=== PATIENT | female | born 1990 | race Caucasian/White ===

== ENCOUNTER 2023-03-12 05:23 | Inpatient (IN) | payer BC ==
[2023-03-12 06:57] VITALS: BMI 27.5
[2023-03-12] MEDS ORDERED: Ondansetron PF 4 MG/2 ML Vial IVP PRN (07:01)
[2023-03-12] MEDS ORDERED: Misoprostol 100 MCG TAB VAG SCH (07:01)
[2023-03-12] MEDS ORDERED: Misoprostol 200 MCG TAB PR PRN (07:01)
[2023-03-12] MEDS ORDERED: Promethazine HCl 25 MG/ML VIAL IM PRN (07:01)
[2023-03-12] MEDS ORDERED: Oxytocin 30 units/NS 500 ML 500 ML IV SCH ×2 (07:01)
[2023-03-12] MEDS ORDERED: Zolpidem Tartrate 5 MG TAB PO PRN (07:01)
[2023-03-12] MEDS ORDERED: Lidocaine 1% (PF) 30 ML VIAL SC PRN (07:01)
[2023-03-12] MEDS ORDERED: Methylergonovine 0.2 MG/ML VIAL IM PRN (07:01)
[2023-03-12] MEDS ORDERED: HYDROcodone/Acetaminophen 5/325 mg Tablet PO PRN ×2 (07:01)
[2023-03-12] MEDS ORDERED: Acetaminophen 500 MG TAB PO PRN (07:01)
[2023-03-12] MEDS ORDERED: hydrALAZINE 20 MG/ML VIAL SLOW IVP PRN ×2 (07:01→19:15)
[2023-03-12] MEDS ORDERED: Tranexamic Acid 1,000 MG/10 ML VIAL IVP PRN (07:01)
[2023-03-12] MEDS ORDERED: fentaNYL 50 mcg/mL 1 mL Vial SLOW IVP PRN (07:01)
[2023-03-12] MEDS ORDERED: Diphenoxylate HCl/Atropine Tablet PO PRN ×2 (07:01)
[2023-03-12] MEDS ORDERED: Carboprost 250 MCG/ML AMP IM PRN (07:01)
[2023-03-12] MEDS ORDERED: Ibuprofen 800 MG TAB PO PRN (07:01)
[2023-03-12] MEDS ORDERED: Lactated Ringer's 1,000 ML IV SCH (07:01)
[2023-03-12 07:21] LABS: Hematocrit 41.3 % (34.9-44.5); Hemoglobin 13.9 g/dL (12.0-15.5); Mean Corpuscular HGB CONC 33.7 g/dL (32.0-36.0); Mean Corpuscular Hemoglobin 29.9 pg (27.0-33.0); Mean Corpuscular Volume 88.8 fl (81.6-98.3); Mean Platelet Volume 11.1 fl (7.4-10.4); Platelet Count 179 10x3/uL (150-450); RBC Distribution Width 14.3 % (11.5-14.5); Red Blood Cell (RBC) Count 4.65 10x6/uL (3.90-5.03); White Blood Cell (WBC) Count 7.7 10x3/uL (3.5-10.5)
[2023-03-12 07:26] LABS: Glucose 130 mg/dL (70-105)
[2023-03-12 07:52] LABS: Hep B Surf Ag - L&D Non-Reactive S/CO (NonReactive)
[2023-03-12 07:53] LABS: Syphilis Antibody Nonreactive (Nonreactive); Syphilis Antibody Index 0.07 S/CO (<1.00 Non-Reactive)
[2023-03-12] MEDS ORDERED: fentaNYL/Ropivacaine Epidural 100 ML ONE (10:34)
[2023-03-12] MEDS ORDERED: Boostrix 0.5 ML (Tdap) VIAL (>/=7 yrs of age) IM ONE (19:15)
[2023-03-12] MEDS ORDERED: Benzocaine-Menthol 82.5 ML CAN TOP PRN (19:15)
[2023-03-12] MEDS ORDERED: diphenhydrAMINE 25 MG CAP PO PRN (19:15)
[2023-03-12] MEDS ORDERED: Milk Of Magnesia 30 ML UDCUP PO PRN (19:15)
[2023-03-12] MEDS ORDERED: Lanolin Ointment 7 GM TUBE TOP PRN (19:15)
[2023-03-12] MEDS ORDERED: Preparation H Ointment 28 GM TUBE PR PRN (19:15)
[2023-03-12] MEDS ORDERED: traMADol HCl 50 MG TAB PO PRN (19:15)
[2023-03-12] MEDS ORDERED: Bisacodyl 10 MG SUPP PR PRN (19:15)
[2023-03-12] MEDS: Ibuprofen 800 MG TAB PO SCH (22:23)
[2023-03-12] MEDS: Docusate 100 MG CAP PO SCH (22:23)
[2023-03-13] MEDS: traMADol HCl 50 MG TAB PO PRN ×4 (04:17→21:51)
[2023-03-13] MEDS: Ibuprofen 800 MG TAB PO SCH ×3 (05:12→21:37)
[2023-03-13] MEDS ORDERED: Prenatal Vitamin 1 TAB PO SCH (09:00)
[2023-03-13] MEDS: Docusate 100 MG CAP PO SCH ×2 (09:14→21:37)
[2023-03-13] MEDS: Ferrous Sulfate 325 MG TAB PO SCH ×2 (09:18→17:11)
[2023-03-13 11:12] VITALS: BP 117/68; TEMP 98.4
== END 2023-03-13 22:30 | disposition home or self-care (01) | DRG 807 ==
LOC: CSHLD 05:23 → CSHPED 21:18
PROVIDERS: ADMIT Obstetrics & Gynecology; ATTEND Obstetrics & Gynecology
PROC: 10E0XZZ Delivery of Products of Conception, External Approach (ICD-10-PCS; principal; 2023-03-12)
DX: O24.420 Gestational diabetes mellitus in childbirth, diet controlled (principal); Z37.0 Single live birth; Z3A.39 39 weeks gestation of pregnancy
CPT/HCPCS: 36416; 51702; 82947; 85027; 86780; 86850; 86900; 86901; 87340